=== PATIENT | male | born 2000 | race Caucasian/White ===

== ENCOUNTER 2023-06-20 04:47 | Emergency (ER) | payer MEDICAID, SELFPAY ==
[2023-06-20] VITALS (13 sets, daily range): BP systolic 127–154; BP diastolic 68–92; PULSE 79–114; RESP 14–25; TEMP 36.4; O2SAT 92–98; BMI 27.0
--- NOTE | 2023-06-20 04:50 | EKG12_ITS ---
Test Reason : DYSRHYTHMIA Blood Pressure : / mmHG Vent. Rate : 098 BPM Atrial Rate : 098 BPM P-R Int : 142 ms QRS Dur : 096 ms QT Int : 352 ms P-R-T Axes : 051 005 023 degrees QTc Int : 449 ms Normal sinus rhythm Normal ECG Confirmed by ELBERT BARONE, MARISSA ([id number]), editor continuity and script MOISE LOPEZ ([id number]) on 06/23/2023 1:06:07 PM Referred By: JOSE CARLOS Confirmed By:MARISSA BOSWELL MD
--- NOTE | 2023-06-20 04:51 | EX.ED.VIS.PS ---
HPI <Dr. Sharan Ambrosio MD - Last Filed: 06/20/23 06:52> HPI - Psych History of Present Illness Chief Complaint: Suicidal Informant: patient, EMS and police/snapper on Narrative Narrative: About 20 minutes prior to EMS arrival, patient intentionally drink 2 bottles of fireball whiskey in addition to downing an entire bottle of someone else's gabapentin. He took pills from no other bottle. He does not know how many he took. He did not know what it was at the time, just prescription medication. States he has no friends in his life is not going well, when asked why he was feeling suicidal. According EMS, he vomited a couple of times en route in the truck. PFSH <Dr. Sharan Ambrosio MD - Last Filed: 06/20/23 06:52> [facility] Medical History Asthma Home Medications NK 06/20/23 [History Last Taken Unknown] Allergy/AdvReac Type Severity Reaction Status Date / Time No Known Allergies Allergy Verified 06/20/23 04:49 Surgical History History of tonsillectomy Social History Smoking Status: Current every day smoker tobacco type: cigarettes ROS <Dr. Sharan Ambrosio MD - Last Filed: 06/20/23 06:52> ROS ED Constitutional Constitutional ED: Denies chills or fever(s) Eyes Eyes: Denies change in vision or diplopia ENT ENT ED: Denies rhinorrhea or sore throat Cardiovascular Cardiovascular: Denies chest pain or palpitations Respiratory/Chest Respiratory/Chest: Denies cough or dyspnea Gastrointestinal Gastrointestinal: Reports nausea and vomiting; Denies abdominal pain or diarrhea Genitourinary Genitourinary ED: Denies dysuria or hematuria Musculoskeletal Musculoskeletal: Denies back pain or neck pain Integumentary Denies abscess or rash Neurologic Neurologic: Denies headache(s), paresthesias or weakness Psychiatric Psychiatric: Reports depression, suicidal ideation and suicidal thoughts; Denies homicidal ideation EXAM <Dr. Sharan Ambrosio MD - Last Filed: 06/20/23 06:52> Physical Exam Const Vital Signs: 06/20/23 04:50 06/20/23 06:32 06/20/23 07:03 Temperature 97.6 F L Temperature Source Temporal Pulse Rate 114 H 93 92 Respiratory Rate 22 H 15 20 H Blood Pressure 144/91 H 138/70 H 131/76 H Blood Pressure Mean 108 92 94 Pulse Ox 98 94 93 Oxygen Delivery Method Room Air Room Air Room Air 06/20/23 09:37 06/20/23 10:25 06/20/23 11:25 Temperature Temperature Source Pulse Rate 88 108 H 83 Respiratory Rate 14 25 H 14 Blood Pressure 127/78 H 133/92 H Blood Pressure Mean 94 105 Pulse Ox 92 97 Oxygen Delivery Method Room Air 06/20/23 14:21 Temperature Temperature Source Pulse Rate 84 Respiratory Rate 16 Blood Pressure 154/87 H Blood Pressure Mean 109 Pulse Ox Oxygen Delivery Method Positive well nourished and well developed Constitutional Narrative: Grossly intoxicated. Dry heaving upon arrival. General Appearance ED: well developed and NAD HEENT Reports moist mucous membranes normocephalic and atraumatic Eyes PERRL and EOMs intact bilaterally General Eye ED: Negative for scleral icterus Neck no lymphadenopathy and supple Resp normal respiratory effort and clear to auscultation bilaterally Cardio no murmurs Rate: regular rate Rhythm: regular rhythm GI non-tender and non-distended Auscultation: normoactive bowel sounds Palpation: soft Back/Spine no CVA tenderness and normal ROM Extremity normal to inspection General Extremety ED: Negative for edema General Extremity: Negative for edema Neuro oriented x3, CN's II-XII intact bilaterally and no sensory deficits noted Sensorium / Orientation: alert Motor Exam: strength 5/5 throughout Psych thought process normal, cooperative, activity/motor behavior normal and denies homicidal ideation Psych Narrative: Slurred speech, grossly intoxicated, otherwise neurologically intact. Mood & Affect: depressed Thought Content: suicidality Skin Lesions: no lesions Rashes: no rashes <Dr. Hi Guadarrama, DO - Last Filed: 06/20/23 15:01> Physical Exam Const Vital Signs: 06/20/23 04:50 06/20/23 06:32 06/20/23 07:03 Temperature 97.6 F L Temperature Source Temporal Pulse Rate 114 H 93 92 Respiratory Rate 22 H 15 20 H Blood Pressure 144/91 H 138/70 H 131/76 H Blood Pressure Mean 108 92 94 Pulse Ox 98 94 93 Oxygen Delivery Method Room Air Room Air Room Air 06/20/23 09:37 06/20/23 10:25 06/20/23 11:25 Temperature Temperature Source Pulse Rate 88 108 H 83 Respiratory Rate 14 25 H 14 Blood Pressure 127/78 H 133/92 H Blood Pressure Mean 94 105 Pulse Ox 92 97 Oxygen Delivery Method Room Air 06/20/23 14:21 Temperature Temperature Source Pulse Rate 84 Respiratory Rate 16 Blood Pressure 154/87 H Blood Pressure Mean 109 Pulse Ox Oxygen Delivery Method MDM <Dr. Sharan Ambrosio MD - Last Filed: 06/20/23 06:52> [facility] Narrative Medical decision making narrative: Order metabolic/toxicologic work-up, in addition to treating the patient empirically with a liter of IV fluids, Zofran, and oral activated charcoal. Unfortunately, probably partially due to the alcohol and partially the gabapentin, the patient was too lethargic to drink the charcoal so we place an NG tube. He was alert enough for this and to not be intubated, currently protecting his airway. Charcoal 50 g was placed via NGT. NGT confirmed by 1 view KUB which on my interpretation shows good placement. He tolerated this well there was no further vomiting while the NG was in, subsequently the patient slept, his vital signs improved with his tachycardia resolving pulse 93, blood pressure 138/70, pulse ox 94% on room air. This is at 2-hour length of stay in the emergency department. I discussed preliminarily with poison control with the understanding that at the maximum according to the pill bottle that we have, he could have taken #90 300 mg caplets for a total of 27 g. They suggest a minimum of 6 hours of observation time, which she will probably surpass for the alcohol alone, and if he develops no oversedation, hypopnea/respiratory depression, or hypotension, then he can be medically cleared from the gabapentin. Given all of this and his current stability, I feel he will likely be able to be observed here in the emergency department unless he develops 1 of these complications at which point he would need to be admitted to the ICU. Checked out to a.m. emergency physician at shift change. History & Record Review Discussion w/independent historian: EMS personnel, Patient, Family and Other (police) Lab Data Attestation: I reviewed the patient's lab results. Labs: Laboratory Results - last 24 hr 06/20/23 06/20/23 06/20/23 04:45 04:55 13:11 WBC 11.0 RBC 4.53 L Hgb 15.3 Hct 45.3 MCV 100.0 H MCH 33.8 H MCHC 33.8 RDW Std Deviation 49.1 H RDW Coeff of Rene 13.2 Plt Count 363 MPV 9.4 Immature Gran % (Auto) 0.800 Neut % (Auto) 64.1 Lymph % (Auto) 25.1 Robertson % (Auto) 7.3 Eos % (Auto) 2.0 Baso % (Auto) 0.7 Absolute Neuts (auto) 7.1 Absolute Lymphs (auto) 2.77 Nucleated RBC % 0 Sodium 144 Potassium 3.8 Chloride 109 H Carbon Dioxide 26.0 Anion Gap 9 BUN 5 L Creatinine 0.87 Estim Creat Clear Calc 143.70 Est GFR (MDRD) Af Amer 139 Est GFR (MDRD) Non-Af 115 BUN/Creatinine Ratio 5.8 L Glucose 116 H Calcium 8.9 Total Bilirubin 0.30 AST 21 ALT 29 Alkaline Phosphatase 80 Total Protein 8.2 Albumin 4.0 Globulin 4.2 Albumin/Globulin Ratio 1.0 Salicylates < 1.7 L Urine Opiates Screen NEGATIVE Urine Methadone Screen NEGATIVE Acetaminophen < 2.0 L Ur Barbiturates Screen NEGATIVE Ur Phencyclidine Scrn NEGATIVE Ur Amphetamines Screen POSITIVE H MDMA (Ecstasy) Screen POSITIVE H U Benzodiazepines Scrn NEGATIVE Urine Cocaine Screen NEGATIVE U Cannabinoids Screen POSITIVE H Ur Drug Screen Comment Ethyl Alcohol 250.0 62.0 Radiography Diagnostic Testing: Clinical Impression(s) from Imaging Studies KUB X-Ray 06/20/23 05:15 IMPRESSION: Nasogastric tube is in adequate position. Electronically Signed: Watson Ziegler MD at 5:55 EDT Reading Location ID and State: [facility] / [place] , Service support , Rhythm Strip Rhythm Strip: Sinus Rhythm Rate: 100 Ectopy: None EKG Initial EKG: Attestation: I personally reviewed and interpreted this EKG as follows: Interpretation: Sinus Rhythm and No Acute Injury Pattern Comments: nml intervals. nml EKG. Management Discussion w/another healthcare provider: Slackman (Toxicology) <Dr. Hi Guadarrama, DO - Last Filed: 06/20/23 15:01> MDM MDM Narrative Medical decision making narrative: Order metabolic/toxicologic work-up, in addition to treating the patient empirically with a liter of IV fluids, Zofran, and oral activated charcoal. Unfortunately, probably partially due to the alcohol and partially the gabapentin, the patient was too lethargic to drink the charcoal so we place an NG tube. He was alert enough for this and to not be intubated, currently protecting his airway. Charcoal 50 g was placed via NGT. NGT confirmed by 1 view KUB which on my interpretation shows good placement. He tolerated this well there was no further vomiting while the NG was in, subsequently the patient slept, his vital signs improved with his tachycardia resolving pulse 93, blood pressure 138/70, pulse ox 94% on room air. This is at 2-hour length of stay in the emergency department. I discussed preliminarily with poison control with the understanding that at the maximum according to the pill bottle that we have, he could have taken #90 300 mg caplets for a total of 27 g. They suggest a minimum of 6 hours of observation time, which she will probably surpass for the alcohol alone, and if he develops no oversedation, hypopnea/respiratory depression, or hypotension, then he can be medically cleared from the gabapentin. Given all of this and his current stability, I feel he will likely be able to be observed here in the emergency department unless he develops 1 of these complications at which point he would need to be admitted to the ICU. Checked out to a.m. emergency physician at shift change. Dr. Guadarrama dictating: Patient signed out to me for monitoring status post intentional overdose with approximately #9 of 300 mg tablets of gabapentin and a couple of bottles of fireball whiskey. Patient has been stable. Patient is now awake. His alcohol level is now 62. He is medically cleared from the standpoint of ingestion and alcohol. Patient seen by the social service liaison and the patient will be placed. I am told that he will go to [facility]. Lab Data Labs: Laboratory Results - last 24 hr 06/20/23 06/20/23 06/20/23 04:45 04:55 13:11 WBC 11.0 RBC 4.53 L Hgb 15.3 Hct 45.3 MCV 100.0 H MCH 33.8 H MCHC 33.8 RDW Std Deviation 49.1 H RDW Coeff of Rene 13.2 Plt Count 363 MPV 9.4 Immature Gran % (Auto) 0.800 Neut % (Auto) 64.1 Lymph % (Auto) 25.1 Robertson % (Auto) 7.3 Eos % (Auto) 2.0 Baso % (Auto) 0.7 Absolute Neuts (auto) 7.1 Absolute Lymphs (auto) 2.77 Nucleated RBC % 0 Sodium 144 Potassium 3.8 Chloride 109 H Carbon Dioxide 26.0 Anion Gap 9 BUN 5 L Creatinine 0.87 Estim Creat Clear Calc 143.70 Est GFR (MDRD) Af Amer 139 Est GFR (MDRD) Non-Af 115 BUN/Creatinine Ratio 5.8 L Glucose 116 H Calcium 8.9 Total Bilirubin 0.30 AST 21 ALT 29 Alkaline Phosphatase 80 Total Protein 8.2 Albumin 4.0 Globulin 4.2 Albumin/Globulin Ratio 1.0 Salicylates < 1.7 L Urine Opiates Screen NEGATIVE Urine Methadone Screen NEGATIVE Acetaminophen < 2.0 L Ur Barbiturates Screen NEGATIVE Ur Phencyclidine Scrn NEGATIVE Ur Amphetamines Screen POSITIVE H MDMA (Ecstasy) Screen POSITIVE H U Benzodiazepines Scrn NEGATIVE Urine Cocaine Screen NEGATIVE U Cannabinoids Screen POSITIVE H Ur Drug Screen Comment Ethyl Alcohol 250.0 62.0 Radiography Diagnostic Testing: Clinical Impression(s) from Imaging Studies KUB X-Ray 06/20/23 05:15 IMPRESSION: Nasogastric tube is in adequate position. Electronically Signed: Watson Ziegler MD at 5:55 EDT Reading Location ID and State: [address] [place] [id number] , Service support , <Dr. Sharan Ambrosio MD - Last Filed: 06/20/23 06:52> Critical Care Time Critical Care Time: Yes Critical care time (excluding procedures): 30-74 minutes (40 min), Including time spent:, Discussing w/Patient &/or Family/Clinical Laboratory Scientist, Discussing w/Consultants, Arranging Admission or Transfer and Performing Direct Patient Care at Bedside Discharge Plan Triage Chief Complaint: Suicidal ED Provider: Sharan Ambrosio Dx/Rx/DC Orders Clinical Impression: Suicide gesture, Alcohol intoxication, Intentional overdose of gabapentin Prescriptions: No Action NK Primary Care Provider: Care Physician,No Primary Referrals: Care Physician,No Primary [Primary Care Provider] -
[2023-06-20 05:04] LABS: Absolute Lymphocyte Count 2.77 X10^3/uL (0.83-4.51); Absolute Neutrophil Count 7.1 X10^3/uL (2.0-7.7); Basophil# 0.08 X10^3/uL; Basophil% 0.7 % (0-1); Eosinophil# 0.22 X10^3/uL; Hematocrit 45.3 % (40-54); Hemoglobin 15.3 g/dL (13.0-16.5); Lymphocyte # 2.77 X10^3/ul (0.83-4.51); Lymphocyte % 25.1 % (19-41); Mean Corp Hgb Conc 33.8 g/dL (32-36); Mean Corpuscular Hgb 33.8 pg (27.0-32.0); Mean Platelet Vol. 9.4 fl (6.2-12.0); Monocyte% 7.3 % (0-10); NRBC Flagged by Analyzer 0 % (0-5); Neutrophil # 7.06 X10^3/uL (2.7-7.7); Neutrophil % 64.1 % (47-70); Platelet Count 363 K/mm3 (150-450); RBC Distribution Width CV 13.2 % (11.6-14.6); RBC Distribution Width SD 49.1 fl (35.1-43.9); Red Blood Count 4.53 M/mm3 (4.6-6.2)
[2023-06-20] MEDS: 0.9% Normal Saline 1,000 ML 999 ML IV (05:10)
[2023-06-20] MEDS: Ondansetron 4 MG/2 ML Vial IV (05:10)
--- NOTE | 2023-06-20 05:15 | RAD_ITS ---
EXAM: XR ABDOMEN, 1 VIEW CLINICAL INDICATION: NG TUBE PLACEMENT NG TUBE PLACEMENT TECHNIQUE: Frontal supine view of the abdomen/pelvis. COMPARISON: No relevant prior studies available. FINDINGS: LOWER THORAX: No acute pathology. GASTROINTESTINAL TRACT: Unremarkable. Non-obstructive. No bowel or stomach distention. ORGANS: Unremarkable as visualized. No organomegaly. No abnormal calcifications. BONES/JOINTS: No acute pathology. SOFT TISSUES: No acute pathology. TUBES, LINES AND DEVICES: There is a nasogastric tube with its tip and sidehole in the body the stomach. RAD/Abdomen Single View (Portable) IMPRESSION: Nasogastric tube is in adequate position. Electronically Signed: Watson Ziegler MD at 5:55 EDT Reading Location ID and State: [facility] / [place] , Service support ,
[2023-06-20 05:22] LABS: AST(SGOT) 21 U/L (15-37); Alanine Aminotransfer ALT/SGPT 29 U/L (16-61); Alkaline Phosphatase 80 U/L (45-117); Anion Gap 9 (5-15); BUN 5 mg/dL (7-18); BUN/Creat Ratio 5.8 RATIO (10-20); Calcium,Total 8.9 mg/dL (8.5-10.1); Chloride 109 mmol/L (98-107); Creatinine, Serum 0.87 mg/dL (0.70-1.30); EST Glomerular Filtration Rate 115 mL/min (>60); Est Glom Filt Rate - Afr Amer 139 mL/min (>60); Globulin 4.2 g/dL (2.2-4.2); Glucose 116 mg/dL (74-106); Potassium 3.8 mmol/L (3.5-5.1); Protein, Total 8.2 g/dL (6.4-8.2); Sodium Level 144 mmol/L (136-145)
[2023-06-20] MEDS: Activated Charcoal 50 GM/240 ML BOT NG (05:26)
[2023-06-20 06:50] LABS: Acetaminophen (Tylenol) Level < 2.0 ug/mL (10.0-30.0); Salicylate < 1.7 mg/dL (2.8-20.0)
--- NOTE | 2023-06-20 10:53 | ED.RN ---
networker in room talking to mom and patient.
--- NOTE | 2023-06-20 11:34 | CM.ED ---
Social Work SW introduce self and role to patient and motherChanel. Patient was sleeping soundly and did not awake while SW present. SW gathered collateral information from patient's mother. SW provided emotional support to mother and will provide resources for substance abuse rehab per mother's inquiry. SW explained process to mother and provided info as able. Per physician patient is medically cleared. SW awaiting blood alcohol results and patient to be more alert to gather more information. Mary Anne Ling FREIGHT SERVICE INSPECTOR, INJECTION MOLD TECHNICIAN
[2023-06-20 11:54] LABS: Amphetamine Urine VISTA POSITIVE (<1000 ng/mL); Barbiturate Urine VISTA NEGATIVE (< 200 ng/mL); Benzodiazepine Urine VISTA NEGATIVE (< 200 ng/mL); Cocaine Urine VISTA NEGATIVE (< 300 ng/mL); Ecstacy Urine VISTA POSITIVE (< 500 ng/mL); Methadone Urine VISTA NEGATIVE (< 300 ng/mL); PCP Urine VISTA NEGATIVE (< 25 ng/mL); THC Urine VISTA POSITIVE (< 50 ng/mL); Vista UDS pH Range 5
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
--- NOTE | 2023-06-20 14:55 | NURSING ---
[facility] [address] [phone]
--- NOTE | 2023-06-20 15:04 | ED.RN ---
Report given to Teodora at [facility].
--- NOTE | 2023-06-20 15:06 | CM.ED ---
Social Work SW received accepting information and provided it to data support analyst to schedule transport. Patient will be going to the [address] unit at [facility]. SW notified patient of acceptance. Pt encouraged to discuss possible longer term placement with their rehab program post psych placement. Pt has had some interest in completing a substance abuse rehab program. SW inquired about withdrawal symptoms and patient denied any symptoms currently. Pt did report he usually gets shaky when he does not drink for a day or two. [facility] is aware of patient's substance abuse status and they are dual diagnosis providers. Mary Anne Ling FOOD MIXER REPAIRER, FISH FILLETER
--- NOTE | 2023-06-20 18:23 | NURSING ---
CALLED [facility], TALKED TO [facility]ONG. ETA IS NOW ABOUT 2100 OR LATER
== END 2023-06-20 22:00 ==
PROVIDERS: Student in an Organized Health Care Education/Training Program; Emergency Provider Emergency Medicine; Visit Provider Emergency Medicine
DX: T42.6X2A Poisoning by other antiepileptic and sedative-hypnotic drugs, intentional self-harm, initial encounter (principal); F10.129 Alcohol abuse with intoxication, unspecified; R47.81 Slurred speech; R11.2 Nausea with vomiting, unspecified; F17.210 Nicotine dependence, cigarettes, uncomplicated; Y90.3 Blood alcohol level of 60-79 mg/100 ml
CPT/HCPCS: 74018; 80053; 80307; 80329; 82077; 85025; 87811; 93005; 99285; J7030; A4216; G0480; J2405

== ENCOUNTER 2023-08-05 11:25 | Emergency (ER) | payer MEDICAID, SELFPAY ==
[2023-08-05] VITALS (31 sets, daily range): BP systolic 101–146; BP diastolic 63–87; PULSE 79–129; RESP 15–89; TEMP 36.1–36.7; O2SAT 94–98; BMI 33.6
--- NOTE | 2023-08-05 11:57 | EKG12_ITS ---
Test Reason : Blood Pressure : / mmHG Vent. Rate : 092 BPM Atrial Rate : 092 BPM P-R Int : 132 ms QRS Dur : 094 ms QT Int : 382 ms P-R-T Axes : 063 019 038 degrees QTc Int : 472 ms Normal sinus rhythm Normal ECG Confirmed by KISHORE BARONE, MOUSTAPHA ([id number]), movie editor KEO MASON ([id number]) on 08/11/2023 2:06:15 PM Referred By: ANILA Confirmed By:ALVARO NOVAK MD
[2023-08-05 12:38] LABS: Absolute Lymphocyte Count 2.59 X10^3/uL (0.83-4.51); Absolute Neutrophil Count 7.8 X10^3/uL (2.0-7.7); Basophil# 0.08 X10^3/uL; Basophil% 0.7 % (0-1); Eosinophil# 0.11 X10^3/uL; Hemoglobin 16.1 g/dL (13.0-16.5); Lymphocyte # 2.59 X10^3/ul (0.83-4.51); Lymphocyte % 22.6 % (19-41); Mean Corp Hgb Conc 34.3 g/dL (32-36); Mean Corpuscular Hgb 33.8 pg (27.0-32.0); Mean Corpuscular Volume 98.5 fL (80-94); Mean Platelet Vol. 9.1 fl (6.2-12.0); Monocyte# 0.82 X10^3/uL; Monocyte% 7.2 % (0-10); NRBC Flagged by Analyzer 0 % (0-5); Neutrophil # 7.81 X10^3/uL (2.7-7.7); Neutrophil % 68.2 % (47-70); Platelet Count 362 K/mm3 (150-450); RBC Distribution Width CV 12.8 % (11.6-14.6); RBC Distribution Width SD 46.4 fl (35.1-43.9); Red Blood Count 4.77 M/mm3 (4.6-6.2); White Blood Count 11.5 K/mm3 (4.4-11.0)
[2023-08-05 13:50] LABS: AST(SGOT) 26 U/L (15-37); Alanine Aminotransfer ALT/SGPT 51 U/L (16-61); Alkaline Phosphatase 84 U/L (45-117); Anion Gap 8 (5-15); BUN 11 mg/dL (7-18); BUN/Creat Ratio 13.4 RATIO (10-20); Calcium,Total 8.7 mg/dL (8.5-10.1); Chloride 106 mmol/L (98-107); Creatinine, Serum 0.82 mg/dL (0.70-1.30); EST Glomerular Filtration Rate 122 mL/min (>60); Est Glom Filt Rate - Afr Amer 148 mL/min (>60); Globulin 4.1 g/dL (2.2-4.2); Glucose 94 mg/dL (74-106); Potassium 3.6 mmol/L (3.5-5.1); Protein, Total 8.1 g/dL (6.4-8.2); Sodium Level 138 mmol/L (136-145)
--- NOTE | 2023-08-05 13:59 | EX.ED.VIS.PS ---
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 Patient states that he took 20 tablets of hydroxyzine 25 mg approximately 2 hours prior to arrival. Police and family state that it was more like 100 tablets. Patient states that he took these accidentally. Police state that the patient posted a video on [employer] of him taking his pills. Patient denies any suicidal ideations at this time. However police and family states patient has been suicidal. Patient states he feels tired at this time. [facility] Medical History (Updated 08/05/23 @ 14:[address] David Graham DO) Anxiety Asthma Home Medications NK 06/20/23 [History Last Taken Unknown] Allergy/AdvReac Type Severity Reaction Status Date / Time No Known Allergies Allergy Verified 08/05/23 11:27 Surgical History History of tonsillectomy Social History Smoking Status: Current every day smoker tobacco type: cigarettes ROS ROS ED Constitutional Constitutional ED: Denies chills or fever(s) Eyes Eyes: Denies blurry vision or change in vision ENT ENT ED: Denies rhinorrhea or sore throat Cardiovascular Cardiovascular: Denies chest pain or palpitations Respiratory/Chest Respiratory/Chest: Denies cough or dyspnea Gastrointestinal Gastrointestinal: Denies nausea or vomiting Genitourinary Genitourinary ED: Denies dysuria or hematuria Musculoskeletal Musculoskeletal: Denies back pain or neck pain Integumentary Denies abscess or rash Neurologic Neurologic: Denies headache(s) or weakness Psychiatric Psychiatric: Reports anxiety and depression Allergic/Immunologic Allergic/Immunologic ED: Denies mouth swelling or urticaria EXAM Physical Exam Const Vital Signs: 08/05/23 11:27 08/05/23 15:00 Temperature 97 F L Temperature Source Temporal Pulse Rate 106 H 87 Respiratory Rate 18 16 Blood Pressure 128/87 H 134/77 H Blood Pressure Mean 100 96 Pulse Ox 97 98 Oxygen Delivery Method Room Air Room Air Positive well nourished and well developed General Appearance ED: well developed and NAD HEENT Reports moist mucous membranes Neck supple and no JVD Resp normal respiratory effort and clear to auscultation bilaterally Cardio regular rate, regular rhythm and no murmurs GI normal to inspection, nondistended, normoactive bowel sounds and non-tender Palpation: soft Extremity normal to inspection General Extremety ED: Negative for edema or tenderness General Extremity: Negative for edema Neuro oriented x3, CN's II-XII intact bilaterally and no sensory deficits noted Sensorium / Orientation: alert Motor Exam: strength 5/5 throughout Psych mental status grossly normal Attitude: calm Activity / Motor Behavior: avoids eye contact Speech: minimal Mood & Affect: flat affect Skin no rashes or lesions noted MDM MDM MDM Narrative Medical decision making narrative: Medical screening labs will be obtained. CBC will be obtained to assess for leukocytosis and anemia. Comprehensive metabolic profile will be obtained to assess for hepatic function, renal function, and electrolyte abnormality. Serum alcohol level will be obtained to assess for alcohol intoxication. Urine drug screen will be obtained to assess for substance abuse. Acetaminophen and salicylate levels will be obtained to assess for coingestants. Lab Data Attestation: I reviewed the patient's lab results. Lab results narrative: CBC was reviewed. There is a slight leukocytosis of 11.5. Hemoglobin and hematocrit are stable. Platelets are normal. Comprehensive metabolic profile was reviewed and was within normal limits. Acetaminophen and salicylate levels were reviewed and were normal. Serum alcohol level was reviewed and was elevated at 142. Labs: Laboratory Results - last 24 hr 08/05/23 08/05/23 08/05/23 12:23 13:20 Unknown WBC 11.5 H RBC 4.77 Hgb 16.1 Hct 47.0 MCV 98.5 H MCH 33.8 H MCHC 34.3 RDW Std Deviation 46.4 H RDW Coeff of Rene 12.8 Plt Count 362 MPV 9.1 Immature Gran % (Auto) 0.300 Neut % (Auto) 68.2 Lymph % (Auto) 22.6 Callahan % (Auto) 7.2 Eos % (Auto) 1.0 Baso % (Auto) 0.7 Absolute Neuts (auto) 7.8 H Absolute Lymphs (auto) 2.59 Nucleated RBC % 0 Sodium 138 Cancelled Potassium 3.6 Cancelled Chloride 106 Cancelled Carbon Dioxide 24.0 Cancelled Anion Gap 8 Cancelled BUN 11 Cancelled Creatinine 0.82 Cancelled Estim Creat Clear Calc Cancelled Est GFR (MDRD) Af Amer 148 Cancelled Est GFR (MDRD) Non-Af 122 Cancelled BUN/Creatinine Ratio 13.4 Cancelled Glucose 94 Cancelled Calcium 8.7 Cancelled Magnesium 2.6 Total Bilirubin 0.30 Cancelled AST 26 Cancelled ALT 51 Cancelled Alkaline Phosphatase 84 Cancelled Total Protein 8.1 Cancelled Albumin 4.0 Cancelled Globulin 4.1 Cancelled Albumin/Globulin Ratio 1.0 Cancelled Salicylates < 1.7 L Cancelled Urine Opiates Screen NEGATIVE Urine Methadone Screen NEGATIVE Acetaminophen < 2.0 L Cancelled Ur Barbiturates Screen NEGATIVE Ur Phencyclidine Scrn NEGATIVE Ur Amphetamines Screen POSITIVE H MDMA (Ecstasy) Screen POSITIVE H U Benzodiazepines Scrn NEGATIVE Urine Cocaine Screen NEGATIVE U Cannabinoids Screen POSITIVE H Ur Drug Screen Comment Ethyl Alcohol 142.0 Cancelled EKG Initial EKG: Attestation: I personally reviewed and interpreted this EKG as follows: Interpretation: Sinus Rhythm (92) and No Acute Injury Pattern Comments: EKG was obtained. On my independent interpretation, it showed a normal sinus rhythm with a rate of 92. [place] interval was normal at 132 ms. QRS interval was normal at 94 ms. QTc interval was 472 ms. [place] was normal. There are no acute ST or T wave changes. Prior EKG tracings: available for review Prior: Unchanged Management Discussion w/another healthcare provider: poultry process worker/Case management Treatment and Re-Evaluation Narrative: Suicide precautions were maintained. Case was discussed with poison control. They recommended observing the patient for 6 to 8 hours postingestion. They also recommended obtaining a magnesium level. This was ordered. Magnesium was reviewed and was normal at 2.6. Patient is medically cleared for psychiatric placement. poultry process worker was in to evaluate the patient. Patient was accepted to the service of Dr. Richmond at [facility]. Patient will be transferred there. Patient and family understand and are agreeable with the plan. All questions were answered. [place] slip and transfer form were filled out. Discharge Plan Triage Chief Complaint: Suicidal ED Provider: David Graham Dx/Rx/DC Orders Clinical Impression: Suicide gesture, Depression Prescriptions: No Action NK Primary Care Provider: Care Physician,No Primary Referrals: Care Physician,No Primary [Primary Care Provider] - Disposition Disposition: Psychiatric Hospital or Unit Discharge Location: [facility]
[2023-08-05 14:02] LABS: Acetaminophen (Tylenol) Level < 2.0 ug/mL (10.0-30.0); Salicylate < 1.7 mg/dL (2.8-20.0)
[2023-08-05 14:49] LABS: Magnesium 2.6 mg/dL (1.6-2.6)
[2023-08-05 15:49] LABS: Amphetamine Urine VISTA POSITIVE (<1000 ng/mL); Barbiturate Urine VISTA NEGATIVE (< 200 ng/mL); Benzodiazepine Urine VISTA NEGATIVE (< 200 ng/mL); Cocaine Urine VISTA NEGATIVE (< 300 ng/mL); Ecstacy Urine VISTA POSITIVE (< 500 ng/mL); Methadone Urine VISTA NEGATIVE (< 300 ng/mL); PCP Urine VISTA NEGATIVE (< 25 ng/mL); THC Urine VISTA POSITIVE (< 50 ng/mL); Vista UDS pH Range 4
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
--- NOTE | 2023-08-05 16:40 | CM.ED ---
Addendum entered by Abbi Yu 08/05/23 17:59: [place] slip faxed to [facility]. ESTRELLA Holt Addendum entered by Abbi Yu 08/05/23 17:43: Patient accepted to [facility] by MD Richmond, [facility] second floor N2N [phone]. [facility] requesting patient not arrive until after 7pm. SW updated care team of acceptance, unit operator to assist with transportation. SW updated patient, patient reports understanding and has not questions. SW contacted patient's mother and provided an update regarding acceptance to [facility]. SW provided brochure about [facility] with program and contact information. SW also reviewed community MH resources, suicide resources, 09/06 substance use crisis hotline as well as information for [facility]. Patient's mother receptive towards information. SW remains available if needs arise. Plan: [facility] for psychiatric hospitalization ESTRELLA Holt Original Note: Social Work Referral for psychiatric placement sent to [facility] as they report having beds available. Plan: pending at [facility] ESTRELLA Holt
--- NOTE | 2023-08-05 17:26 | NURSING ---
WAITING FOR [facility] ETA 120 MINUTES
--- NOTE | 2023-08-05 17:31 | NURSING ---
DAVID TY MD [facility], 2ND FLOOR N2N [phone]
--- NOTE | 2023-08-05 17:38 | ED.RN ---
REPORT CALLED TO DAVID TY NURSEZOE
== END 2023-08-05 20:00 ==
PROVIDERS: Emergency Provider Emergency Medicine; Visit Provider Emergency Medicine
DX: T45.0X2A Poisoning by antiallergic and antiemetic drugs, intentional self-harm, initial encounter (principal); F32.A Depression, unspecified; F41.9 Anxiety disorder, unspecified; J45.909 Unspecified asthma, uncomplicated; F17.210 Nicotine dependence, cigarettes, uncomplicated
CPT/HCPCS: 36415; 80053; 80307; 80329; 82077; 83735; 85025; 93005; 99285; G0480

== ENCOUNTER 2024-03-18 15:00 | Emergency (ER) | payer MEDICAID, SELFPAY ==
[2024-03-18 15:01] VITALS: BP 159/107; PULSE 108; RESP 18; TEMP 36.3; O2SAT 98; BMI 37.3
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
== END 2024-03-18 16:00 | disposition home or self-care (01) ==
PROVIDERS: Emergency Provider Emergency Medicine; Visit Provider Emergency Medicine
DX: F43.0 Acute stress reaction (principal); F31.9 Bipolar disorder, unspecified; J45.909 Unspecified asthma, uncomplicated; F17.210 Nicotine dependence, cigarettes, uncomplicated
CPT/HCPCS: 99282

== ENCOUNTER 2024-11-05 20:31 | Emergency (ER) | payer MEDICAID, SELFPAY ==
[2024-11-05 20:32] VITALS: BP 128/83; PULSE 106; RESP 15; TEMP 36.4; O2SAT 98
== END 2024-11-05 21:37 | disposition left against medical advice (07) ==
LOC: ED 21:50
DX: Z53.21 Procedure and treatment not carried out due to patient leaving prior to being seen by health care provider (principal)